=== PATIENT | male | born 1935 | race Caucasian/White ===

== ENCOUNTER 2017-06-04 11:42 | Observation (INO) | payer MEDICARE ==
[2017-06-04 12:07] LABS: BASOPHILS 0.3 % (0-2); EOSINOPHILS 2.9 % (0-7); HEMATOCRIT 37.2 % (42.0-54.0); HEMOGLOBIN 12.5 g/dL (13.5-17.5); IMMATURE GRANULOCYTES 0.2 % (0-5); LYMPHOCYTES 40.3 % (15-50); MCH 31.4 pg (26.0-34.0); MCHC 33.6 g/dL (31.0-37.0); MCV 93.5 fL (80.0-100.0); MONOCYTES 9.4 % (2-11); NEUTROPHILS 46.9 % (40-80); PLATELET COUNT 180 10x3/uL (130-400); RBC 3.98 10x6/uL (4.20-6.10); RDW 12.6 % (11.5-14.5); WBC 5.9 10x3/uL (4.8-10.8)
[2017-06-04 12:11] LABS: APPEARANCE CLEAR (CLEAR); BACTERIA MODERATE /hpf (NONE SEEN); BILIRUBIN NEGATIVE (NEGATIVE); COLOR YELLOW (YELLOW); EPITHELIAL CELLS 0-5 /hpf (0-5); GLUCOSE NEGATIVE (NEGATIVE); KETONE NEGATIVE (NEGATIVE); MUCUS >1+ /lpf (NONE SEEN); NITRITE NEGATIVE (NEGATIVE); PROTEIN NEGATIVE (NEGATIVE); RED CELLS - URINE 0-5 /hpf (0-5); UROBILINOGEN NORMAL (NORMAL); WHITE CELLS - URINE 0-5 /hpf (0-5)
[2017-06-04 12:18] LABS: UDS - AMPHET NEGATIVE QUAL (NEGATIVE); UDS - BARB NEGATIVE QUAL (NEGATIVE); UDS - BENZO NEGATIVE QUAL (NEGATIVE); UDS - COCAINE NEGATIVE QUAL (NEGATIVE); UDS - OPIATE NEGATIVE QUAL (NEGATIVE); UDS - PCP NEGATIVE QUAL (NEGATIVE); UDS - THC NEGATIVE QUAL (NEGATIVE)
[2017-06-04 12:22] LABS: ALKALINE PHOSPHATASE 129 U/L (46-116); ALT (SGPT) 15 U/L (10-68); BILIRUBIN - TOTAL 0.84 mg/dL (0.2-1.3); CALC OSMOLALITY 284 mosm/kg (275-300); CALCIUM 8.6 mg/dL (8.5-10.1); CARBON DIOXIDE 27.7 mmol/L (21.0-32.0); CHLORIDE - SERUM 106 mmol/L (98-107); CREATININE - SERUM 1.4 mg/dL (0.6-1.3); GLUCOSE 96 mg/dL (74-106); POTASSIUM - SERUM 3.3 mmol/L (3.5-5.1); PROTEIN - SERUM 6.7 g/dL (6.4-8.2); SODIUM 142 mmol/L (136-145); UREA NITROGEN 17 mg/dL (7-18); eGFR NON AFRICAN AMERICAN 51 mL/min (90-120)
[2017-06-04 12:46] LABS: MAGNESIUM - SERUM 2.1 mg/dL (1.8-2.4)
[2017-06-04 12:47] LABS: CKMB 1.4 U/L (0.0-3.6); CREATINE KINASE 447 UL (21-232); PRO BNP 545 pg/mL (0-450); TROPONIN-I < 0.017 ng/mL (0.000-0.060)
--- NOTE | 2017-06-04 17:10 | NUR ---
TRANSFER FROM ER BY W/C. VONDAINTED TO ROOM. CALL LIGHT IN REACH. WILL CONT. PLAN OF CARE.
[2017-06-04 17:25] VITALS: BP 154/82; BMI 27.5
[2017-06-04] MEDS ORDERED: ZOLOFT50 MG PO (17:31)
[2017-06-04] MEDS ORDERED: NAMENDA10 MG PO (17:32)
[2017-06-04] MEDS ORDERED: ARICEPT10 MG PO (17:32)
[2017-06-04] MEDS ORDERED: ZOCOR80 MG PO (17:33)
[2017-06-04 17:53] VITALS: BP 154/82
[2017-06-04 19:00] VITALS: BP 155/88
--- NOTE | 2017-06-04 19:10 | NUR ---
AWAKE/ALERT ORIENTED X1. MULTIPLE FAMILY MEMBERS PRESENT IN ROOM. STATED HE DOES TRY TO GET OOB MULTIPLE TIMES DURING THE NIGHT. STATED NONE OF THE FAMILY MEMBERS CAN STAY WITH HIM TONIGHT. FREDDY BED ALARM IS ON. IV IN L AC WITH NS INFUSING AT 50ML/HR. TELEMETRY SHOWS 61 SR. FAMILY IS LEAVING. LEFT DOOR OPEN TO MONITOR CLOSELY.
--- NOTE | 2017-06-04 21:40 | NUR ---
ADMIN POTASSIUM 40 MEQ PO MIXED IN ORANGE JUICE FOR LAB VALUE 3.3.
[2017-06-05] VITALS: BP 149/69
--- NOTE | 2017-06-05 01:15 | NUR ---
TRANSFERED FROM 2128 TO 2133 TO BE CLOSER TO NURSES STATION DUE TO HX OF FALLS AND DEMENTIA. ASSISTED TO BATHROOM TO VOID AND BACK TO BED.
--- NOTE | 2017-06-05 02:16 | NUR ---
PULLED IV OUT, RESITED IN LEFT FA 22G. ALSO PULLED OFF TELEMETRY LEADS.
[2017-06-05 04:00] VITALS: BP 127/71
--- NOTE | 2017-06-05 04:57 | NUR ---
FOUND PATIENT PULLING ON IV LINE. IV HAD DISLODGED AND INFILTRATED. WOULD NOT LET ME REMOVE IV, HITTING AND KICKING. ANOTHER NURSE ASSISTED HOLDING HIS ARMS AND FEET SO I COULD REMOVE THE IV. TRIED TO WRAP A WARM BLANKET AROUND HIS HAND FOR THE SWELLING AND HE RESISTED THIS TREATMENT.
[2017-06-05 05:16] LABS: BASOPHILS 0.3 % (0-2); EOSINOPHILS 4.3 % (0-7); HEMATOCRIT 37.7 % (42.0-54.0); HEMOGLOBIN 12.3 g/dL (13.5-17.5); IMMATURE GRANULOCYTES 0.1 % (0-5); LYMPHOCYTES 40.6 % (15-50); MCH 30.8 pg (26.0-34.0); MCHC 32.6 g/dL (31.0-37.0); MCV 94.5 fL (80.0-100.0); MEAN PLATELET VOLUME 10.1 fL (7.4-10.4); MONOCYTES 10.2 % (2-11); NEUTROPHILS 44.5 % (40-80); PLATELET COUNT 183 10x3/uL (130-400); RBC 3.99 10x6/uL (4.20-6.10); RDW 12.6 % (11.5-14.5); WBC 7.2 10x3/uL (4.8-10.8)
[2017-06-05 05:40] LABS: ALBUMIN 3.1 g/dL (3.4-5.0); BILIRUBIN - TOTAL 0.6 mg/dL (0.2-1.3); CALCIUM 8.7 mg/dL (8.5-10.1); CARBON DIOXIDE 28.3 mmol/L (21.0-32.0); CREATININE - SERUM 1.4 mg/dL (0.6-1.3); PROTEIN - SERUM 6.3 g/dL (6.4-8.2)
[2017-06-05 05:42] LABS: ANION GAP 13.3 mmol/L (8-16); POTASSIUM - SERUM 4.6 mmol/L (3.5-5.1)
--- NOTE | 2017-06-05 06:17 | NUR ---
ASSISTED TO BATHROOM TO VOID. KILNMAN CHANGED BEDDING AND PUT AN ADULT DIAPER ON HIM. REFUSED TO TAKE SCHED MED PROTONIX.
[2017-06-05 08:00] VITALS: BP 170/90
--- NOTE | 2017-06-05 10:33 | NUR ---
PT RESTING QUIELTY, RR EVEN AND UNLABORED. FAMILY AT BEDSIDE, DISCUSSED CARE WITH FAMILY. WILL CTM.
[2017-06-05 12:00] VITALS: BP 152/93
[2017-06-05 12:52] VITALS: BMI 24.0
[2017-06-05 16:00] VITALS: BP 149/75
--- NOTE | 2017-06-05 18:30 | NUR ---
PT RESTING QUIETLY, FAMILY AT BEDSIDE. RR EVEN AND UNLABORED. PT CALM AND COOPERATIVE. WILL GIVE REPORT ON PT CONDITION FOR THE DAY.
[2017-06-05 19:00] VITALS: BP 145/87
--- NOTE | 2017-06-05 19:47 | NUR ---
FAMILY HAS LEFT FOR THE NIGHT. PT WITH MAT ALARM IN PLACE. ASSISTED UP TO USE BSC. ALSO HAS DEPENDS IN PLACE. NO IV ACCESS. NONLABORED RESPIRATIONS ON ROOM AIR. DOOR TO ROOM IS OPEN AND HIS ROOM FACES THE NURSES STATION FOR OPTIMAL SUPERVISION. SEE SHIFT ASSESSMENT. CPOC.
--- NOTE | 2017-06-05 22:35 | NUR ---
PT CURLED UP IN BED AND WENT TO SLEEP IMMEDIATELY AFTER HIS FAMILY LEFT. UNFORTUNATELY THIS MADE HIM RESISTENT TO TAKING HIS BEDTIME MEDS WHEN HE WAS AWAKENED. HE IS CONFUSED. TELLS NURSE HE DOESN'T TAKE MEDS FROM A "3YEAR OLD" IN REFERENECE TO HIS DAUGHTER. NO COAXING OR RATIONALIZING MADE HIM WANT TO TAKE "THOSE PILLS" THAT COULD BE "ANYBODIES". WILL LOOK INTO RESETTING HS MEDS FOR EARLIER WHEN PT IS LESS CONFUSED/LESS SUNDOWNING. FOR NOW, WILL MONITOR AND LET PATIENT SLEEP.
[2017-06-06] VITALS: BP 171/87
[2017-06-06 04:03] VITALS: BP 166/73
--- NOTE | 2017-06-06 05:13 | NUR ---
PT HAS RESTED WITHOUT INCIDENT THE ENTIRE NIGHT. HE HAS NOT ATTEMPTED TO GET UP. MAT ALARM HAS BEEN IN PLACE. CPOC.
[2017-06-06 06:10] LABS: BASOPHILS 0.3 % (0-2); EOSINOPHILS 6.1 % (0-7); HEMATOCRIT 36.2 % (42.0-54.0); HEMOGLOBIN 11.8 g/dL (13.5-17.5); IMMATURE GRANULOCYTES 0.2 % (0-5); LYMPHOCYTES 40.4 % (15-50); MCH 30.8 pg (26.0-34.0); MCHC 32.6 g/dL (31.0-37.0); MCV 94.5 fL (80.0-100.0); MEAN PLATELET VOLUME 10.2 fL (7.4-10.4); MONOCYTES 10.5 % (2-11); NEUTROPHILS 42.5 % (40-80); PLATELET COUNT 177 10x3/uL (130-400); RBC 3.83 10x6/uL (4.20-6.10); RDW 12.8 % (11.5-14.5); WBC 6.2 10x3/uL (4.8-10.8)
[2017-06-06 06:36] LABS: ANION GAP 10.9 mmol/L (8-16); BILIRUBIN - TOTAL 0.5 mg/dL (0.2-1.3); CALCIUM 8.4 mg/dL (8.5-10.1); CARBON DIOXIDE 28.7 mmol/L (21.0-32.0); CREATININE - SERUM 1.3 mg/dL (0.6-1.3); PROTEIN - SERUM 6.2 g/dL (6.4-8.2)
[2017-06-06 06:38] LABS: POTASSIUM - SERUM 3.6 mmol/L (3.5-5.1)
--- NOTE | 2017-06-06 07:30 | NUR ---
REPORT RECEIVED. RR EVEN AND UNLABORED. PT ASLEEP. WILL CTM.
--- NOTE | 2017-06-06 07:42 | NUR ---
ORDER FOR STOOL SPECIMEN UNCOLLECTED. PT ONLY VOIDED DURING THIS SHIFT.
[2017-06-06 08:00] VITALS: BP 156/63
--- NOTE | 2017-06-06 09:30 | NUR ---
SPOKE TO PTS FAMILY MEMEMBER OVER TELEPHONE REGARDING PT STATUS. FAMILY VERBALIZED UNDERSTANDING REGARDING PT STATUS. WILL CTM.
--- NOTE | 2017-06-06 10:14 | NUR ---
ASSISTED PT TO BSC. PT CALM AND COOPERATIVE. DENIES FURTHER NEEDS, FREDDY ALARM ON PT. WILL CTM.
[2017-06-06 12:00] VITALS: BP 98/61
--- NOTE | 2017-06-06 15:34 | NUR ---
ROUNDING AND I INFORMED HER ABOUT PTS CONFUSION AND NONCOMPLIANCY AT NIGHT WITH MEDS SO WE ARE ADJUSTING SCHEDULE TO BEST BENEFIT PT AND HOPEFULLY HE WONT REFUSE DURING WITH DINNER MEAL SINCE FAMILY IS AROUND. CALLED PHARMACY AND THEY WILL MAKE THE TIME CHANGES. NO FURTHER NEEDS. WILL CPOC.
[2017-06-06 16:00] VITALS: BP 147/88
--- NOTE | 2017-06-06 18:25 | NUR ---
PT RESTING QUIETLY, RR EVEN AND UNALBORED. FREDDY ALARM ON PT. PT DENIES NEEDS AT THIS TIME, WILL GIVE REPORT ON PT CONDTION FOR THE DAY.
[2017-06-06 20:00] VITALS: BP 163/99
--- NOTE | 2017-06-06 20:13 | NUR ---
LATE ENTRY 1745 PATIENT'S AND DAUGHTER NOT AT THE BEDSIDE THIS PM. PATIENT REMAINS CONFUSED. TC TO THE DAUGHTER MARKO FERREIRA AT [phone]. SHE WAS AT [facility] W/ THE FAMILY OF A FRIEND. CM SPOKE WITH HER BRIEFLY. SHE STATES SHE MOVED HER MOTHER AND FATHER TO HER HOME TO ASSIST HER MOTHER W/ CARE OF HER FATHER APPROXIMATELY 3 MONTHS AGO. THE PATIENT HAS WORSENING MENTAL STATUS CHANGES. BECOMES "COMBATIVE" PARTICULARLY WITH MEDICATION ADMINISTRATION, BATHING ETC. HER FATHER RECEIVES CARE W/ THE LOCAL [facility] OFFICE. SHE HAD FILLED OUT PAPERWORK FOR CAREGIVER ASSISTANCE BUT HAS BEEN DENIED. SHE HAD JUST TAKEN HER FATHER TO SEE SAMIRA MCKEON ON WEDNESDAY. CM DISCUSSED THAT HER FATHER HAS BEEN IN OBSERVATION. DISCUSSED PLAN FOR DISCHARGE. SHE WOULD LIKE TO TAKE HIM HOME W/ HOME HEALTH SERVICES. SHE HAS NOT BEEN SUCCESSFUL WORKING WITH THE [facility]. EXPLAINED HIS INSURER CAN APPROVE HOME HEALTH. PATIENT HAD A NEUROSURGERY CONSULT TODAY . PSYCH CONSULT MAYBE APPROPRIATE. WEEKDAY CM TO FOLLOW DTR CANNOT FREELY DISCUSS PLAN IN PRESENT SETTING.
[2017-06-07 00:44] VITALS: BP 145/80
[2017-06-07 05:09] LABS: BASOPHILS 0.3 % (0-2); EOSINOPHILS 5.9 % (0-7); HEMATOCRIT 37.9 % (42.0-54.0); HEMOGLOBIN 12.3 g/dL (13.5-17.5); IMMATURE GRANULOCYTES 0.1 % (0-5); LYMPHOCYTES 43.2 % (15-50); MCH 31.2 pg (26.0-34.0); MCHC 32.5 g/dL (31.0-37.0); MCV 96.2 fL (80.0-100.0); MEAN PLATELET VOLUME 10.5 fL (7.4-10.4); MONOCYTES 10.1 % (2-11); NEUTROPHILS 40.4 % (40-80); PLATELET COUNT 171 10x3/uL (130-400); RBC 3.94 10x6/uL (4.20-6.10); RDW 12.7 % (11.5-14.5); WBC 6.8 10x3/uL (4.8-10.8)
[2017-06-07 05:28] LABS: ALBUMIN 2.7 g/dL (3.4-5.0); ANION GAP 11.5 mmol/L (8-16); BILIRUBIN - TOTAL 0.41 mg/dL (0.2-1.3); CALCIUM 8.3 mg/dL (8.5-10.1); CARBON DIOXIDE 28.1 mmol/L (21.0-32.0); CREATININE - SERUM 1.2 mg/dL (0.6-1.3); POTASSIUM - SERUM 3.6 mmol/L (3.5-5.1); PROTEIN - SERUM 6.3 g/dL (6.4-8.2)
[2017-06-07 05:43] VITALS: BP 167/87
--- NOTE | 2017-06-07 07:42 | NUR ---
AM ROUNDS - PT IS IN BED AND AWAKE AT THIS TIME. FREDDY MAT ALARM ON AND WORKING. NO IV, NO MONITOR, REFUSES SCD. PT PULLS OUT/OFF IV AND MONITOR, BSC AT BEDSIDE. YELLOW BAND ON. BED AT LOWEST POSITION. CALL PHILLIPS IN USE/REACH. SIDE RAILS UP 2. WILL CONTINUE TO MONITOR
[2017-06-07 08:00] VITALS: BP 163/86
[2017-06-07 12:00] VITALS: BP 121/73
[2017-06-07] MEDS ORDERED: Levaquin PO (14:03)
[2017-06-07] MEDS ORDERED: FLORAJEN3 CAPS460 MG PO (14:04)
[2017-06-07] MEDS ORDERED: LEVAQUIN250 MG PO (14:09)
--- NOTE | 2017-06-07 15:11 | NUR ---
PT IN BED AWAKE WITH A VISITOR AT BEDSIDE. FREDDY BED ALARM ON AND WORKING. NO NEEDS AT THIS TIME. WILL CONTINUE TO MONITOR
--- NOTE | 2017-06-07 17:29 | NUR ---
D/C - WRITTEN AND VERBAL D/C INSTRUCTIONS GIVEN TO PT'S FAMILY MEMBER. NO IV TO D/C. NO HEART MONITOR TO D/C. PT LEFT FLOOR VIA WHEELCHAIR BY [facility] AND FAMILY MEMBER. WILL D/C
[2017-06-11 03:11] LABS: OVA + PARASITE EXAM Final report (())
== END 2017-06-07 17:34 | disposition home health service (06) ==
LOC: D.ER 11:42 → OBSVTIME 15:57 → D.M2 15:57
PROVIDERS: Emergency Medicine; Nurse Practitioner Family; ADMIT Family Medicine
DX: E86.0 Dehydration (principal); G93.41 Metabolic encephalopathy; R53.2 Functional quadriplegia; N39.0 Urinary tract infection, site not specified; F02.81 Dementia in other diseases classified elsewhere, unspecified severity, with behavioral disturbance; I25.10 Atherosclerotic heart disease of native coronary artery without angina pectoris; I10 Essential (primary) hypertension; G31.83 Neurocognitive disorder with Lewy bodies; E87.6 Hypokalemia; G93.0 Cerebral cysts; Z95.5 Presence of coronary angioplasty implant and graft

== ENCOUNTER 2017-07-09 13:07 | Observation (INO) | payer MEDICARE ==
[~2017-07-09] VITALS: Ht 157.5 cm; Wt 71.5 kg
[~2017-07-09 13:07] MED LIST: ARICEPT10 MG PO; FLORAJEN3 CAPS460 MG PO; LEVAQUIN250 MG PO; Levaquin PO; NAMENDA10 MG PO; ZOCOR80 MG PO; ZOLOFT50 MG PO
[2017-07-09 14:49] VITALS: BP 150/73; BMI 22.9
[2017-07-09 15:56] VITALS: BP 150/73
--- NOTE | 2017-07-09 17:56 | NUR ---
IV SITED TO LEFT FOREARM AFTER ONE ATTEMPT WITH 20G. TOLERATED WITHOUT C/O
--- NOTE | 2017-07-09 19:00 | NUR ---
REPORT RECEIVED AND CARE OF PT ASSUMED. PT LYING IN HIGH SUE'S POSITION WATCHING TV. IV IN LEFT FA SALINE LOCKED. BED ALARM AND FREDDY ALARM IN PLACE FOR HIGH FALL RISK PT. WILL MONITOR CLOSELY FOR NEEDS.
[2017-07-09 20:00] VITALS: BP 145/83
--- NOTE | 2017-07-09 20:30 | NUR ---
HS MEDICATIONS GIVEN. WILL CONTINUE TO MONITOR FOR NEEDS.
[2017-07-10] VITALS: BP 180/93
--- NOTE | 2017-07-10 03:47 | NUR ---
PT BATHED AND ALL LINENS AND GOWN CHANGED. POSITIONED FOR COMFORT. BED ALARM AND FREDDY ALARM ACTIVATED.
--- NOTE | 2017-07-10 03:58 | NUR ---
CLEANSED ABRASION / SCAB / SORE AREA ON LEFT THIGH. TREATED WITH IODINE AND COVERED WITH MEPILEX DRESSING. WILL CONTINUE TO MONITOR FOR NEEDS.
[2017-07-10 04:00] VITALS: BP 160/89
--- NOTE | 2017-07-10 04:39 | NUR ---
PT CONFUSED AND CLIMBING OUT OF BED...ASKING WHERE HIS IS. ATTEMPTS TO RE-ORIENT ARE ONLY SUCCESSFUL FOR A FEW MINUTES AT A TIME. BED ALARM AND FREDDY ALARM IN USE. SIDE RAILS UP X3 FOR SAFETY.
[2017-07-10 06:55] LABS: BASOPHILS 0.2 % (0-2); EOSINOPHILS 2.6 % (0-7); HEMATOCRIT 33.8 % (42.0-54.0); HEMOGLOBIN 11.3 g/dL (13.5-17.5); LYMPHOCYTES 37.3 % (15-50); MCH 31.1 pg (26.0-34.0); MCHC 33.4 g/dL (31.0-37.0); MCV 93.1 fL (80.0-100.0); MEAN PLATELET VOLUME 10.5 fL (7.4-10.4); MONOCYTES 10.7 % (2-11); NEUTROPHILS 49.2 % (40-80); PLATELET COUNT 187 10x3/uL (130-400); RBC 3.63 10x6/uL (4.20-6.10); WBC 5.9 10x3/uL (4.8-10.8)
[2017-07-10 07:24] LABS: ALBUMIN 2.8 g/dL (3.4-5.0); ANION GAP 15.5 mmol/L (8-16); BILIRUBIN - TOTAL 0.86 mg/dL (0.2-1.3); CALCIUM 8.1 mg/dL (8.5-10.1); CARBON DIOXIDE 24.4 mmol/L (21.0-32.0); CREATININE - SERUM 1.2 mg/dL (0.6-1.3); PROTEIN - SERUM 6.1 g/dL (6.4-8.2)
[2017-07-10 07:28] LABS: POTASSIUM - SERUM 2.9 mmol/L (3.5-5.1)
--- NOTE | 2017-07-10 08:00 | NUR ---
ASSESSMENT PER FLOW SHEET.PT WITHOUT DISTRESS.VERY CONFUSED. FALL PREVENTION IN PLACE WITH BED ALARM AND FREDDY ON AND FUNTIONING.
[2017-07-10 10:10] VITALS: BP 166/83
--- NOTE | 2017-07-10 11:00 | NUR ---
FAMILY TO VISIT.PT REMAINS WITHOUT DISTRESS.DOOR OPEN
[2017-07-10 13:39] VITALS: BP 146/80
[2017-07-10 14:20] VITALS: Ht 157.5 cm; Wt 71.5 kg
[2017-07-10 16:51] VITALS: BP 152/80
--- NOTE | 2017-07-10 18:19 | NUR ---
REMAINS WITHOUT CHANGE FROM INITIAL SHIFT ASSESSMENT.CONT PLAN OF CARE
--- NOTE | 2017-07-10 19:00 | NUR ---
REPORT RECEIVED AND CARE OF PT ASSUMED. PT LYING ON RIGHT SIDE WITH EYES CLOSED AND EASY RESPIRATIONS. IV IN LEFT FA PATENT WITH NS INFUSING AT 50 ML / HR AND POTASSIUM RIDER INFUSING AT 50 ML / HR. BED ALARM AND FREDDY ALARM IN PLACE FOR HIGH FALL RISK PATIENT. WILL MONITOR VIJAYLEY. SIDE RAILS UP X3 FOR SAFETY.
[2017-07-10 20:00] VITALS: BP 173/80
--- NOTE | 2017-07-10 21:13 | NUR ---
HS MEDICATIONS GIVEN. WILL CONTINUE TO MONITOR FOR NEEDS.
[2017-07-11] VITALS: BP 130/70
--- NOTE | 2017-07-11 00:13 | NUR ---
ASSISTED PT UP TO USE RESTROOM...VERY UNSTEADY ON HIS FEET. POSITIONED BACK IN BED FOR COMFORT. SIDE RAILS UP X3 AND BED ALARMS ACTIVATED FOR SAFETY.
[2017-07-11 04:00] VITALS: BP 155/75
[2017-07-11 05:02] LABS: BASOPHILS 0.1 % (0-2); EOSINOPHILS 2.7 % (0-7); HEMATOCRIT 36.2 % (42.0-54.0); HEMOGLOBIN 11.8 g/dL (13.5-17.5); IMMATURE GRANULOCYTES 0.3 % (0-5); LYMPHOCYTES 40.4 % (15-50); MCH 30.7 pg (26.0-34.0); MCHC 32.6 g/dL (31.0-37.0); MCV 94.3 fL (80.0-100.0); MEAN PLATELET VOLUME 10.1 fL (7.4-10.4); MONOCYTES 9.6 % (2-11); NEUTROPHILS 46.9 % (40-80); PLATELET COUNT 185 10x3/uL (130-400); RBC 3.84 10x6/uL (4.20-6.10); RDW 12.9 % (11.5-14.5); WBC 6.7 10x3/uL (4.8-10.8)
[2017-07-11 05:27] LABS: ANION GAP 12.7 mmol/L (8-16); BILIRUBIN - TOTAL 1.13 mg/dL (0.2-1.3); CALCIUM 8.3 mg/dL (8.5-10.1); CARBON DIOXIDE 24.9 mmol/L (21.0-32.0); CREATININE - SERUM 1.2 mg/dL (0.6-1.3); PROTEIN - SERUM 6.5 g/dL (6.4-8.2)
[2017-07-11 05:28] LABS: POTASSIUM - SERUM 3.6 mmol/L (3.5-5.1)
--- NOTE | 2017-07-11 06:08 | NUR ---
PT BATHED AND ALL LINENS CHANGED, AND SCRUBS PUT ON PT FOR COMFORT, HE WAS NOT HAPPY WEARING GOWN. SIDE RAILS UP X3 AND BED ALARMS ACTIVATED. WILL CONTINUE TO MONITOR FOR NEEDS.
--- NOTE | 2017-07-11 06:09 | NUR ---
WOUND ON LEFT THIGH CLEANSED AND SWABBED WITH BETADINE. BORDER GAUZE DRESSING APPLIED.
--- NOTE | 2017-07-11 07:08 | NUR ---
PT IS LYING IN BED, CONFUSED ABOUT TIME OF DAY, REORIENTED TO TIME OF DAY, BED IN LOW POSITION, CALL LIGHT IN REACH, DRESSING ON LEFT LEG IS CLAEN DRY AND INTACT, NO SIGNS OF DISTRESS, CONTINUE WITH PLAN OF CARE
--- NOTE | 2017-07-11 07:15 | NUR ---
PATIENT IN BED WITH NO COMPLAINTS AT THIS TIME. IV INTACT. CALL LIGHT WITHIN REACH.
[2017-07-11 08:20] VITALS: BP 172/88
[2017-07-11 11:38] VITALS: BP 136/100; BP 147/67
[2017-07-11 15:04] VITALS: BP 126/63
--- NOTE | 2017-07-11 15:16 | NUR ---
1510 CM WENT TO PATIENT'S ROOM. NO ONE AT THE BEDSIDE. THE PATIENT IS SLEEPING. TC TO [phone]. LEFT5 VOICEMAIL. AWAIT CB REGARDING DISCHARGE PLAN.
--- NOTE | 2017-07-11 18:10 | NUR ---
PT IS LYING ON LEFT SIDE WITH COVERS OVER HEAD, HAD NOT EATEN DINER, PT STATED HAD A BIG LUNCH AND JUST NOT VERY HUNGRY. NO SIGNS OF DISTRESS, BED IN LOW POSITION, CALL LIGHT IN REACH
--- NOTE | 2017-07-11 19:00 | NUR ---
REPORT RECEIVED AND CARE OF PT ASSUMED. PT LYING ON RIGHT SIDE IN LOW SUE'S POSITION. IV IN LEFT FA SALINE LOCKED. BED ALARM AND FREDDY ALARM IN USE. SIDE RAILS UP X3 FOR SAFETY. WILL CONTINUE TO MONITOR FOR NEEDS.
[2017-07-11 20:00] VITALS: BP 130/70; BP 141/89
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
[2017-07-12] VITALS: BP 141/89
[2017-07-12 04:00] VITALS: BP 186/85
[2017-07-12 05:49] LABS: BASOPHILS 0.3 % (0-2); EOSINOPHILS 3.3 % (0-7); HEMATOCRIT 36.1 % (42.0-54.0); HEMOGLOBIN 11.7 g/dL (13.5-17.5); IMMATURE GRANULOCYTES 0.2 % (0-5); LYMPHOCYTES 44.2 % (15-50); MCH 30.8 pg (26.0-34.0); MCHC 32.4 g/dL (31.0-37.0); MEAN PLATELET VOLUME 10.7 fL (7.4-10.4); MONOCYTES 10.3 % (2-11); NEUTROPHILS 41.7 % (40-80); PLATELET COUNT 193 10x3/uL (130-400); RDW 12.9 % (11.5-14.5); WBC 5.8 10x3/uL (4.8-10.8)
[2017-07-12 06:11] LABS: ALBUMIN 2.9 g/dL (3.4-5.0); ANION GAP 11.7 mmol/L (8-16); CALCIUM 8.4 mg/dL (8.5-10.1); CARBON DIOXIDE 27.6 mmol/L (21.0-32.0); CREATININE - SERUM 1.2 mg/dL (0.6-1.3); POTASSIUM - SERUM 3.3 mmol/L (3.5-5.1); PROTEIN - SERUM 6.3 g/dL (6.4-8.2)
--- NOTE | 2017-07-12 06:22 | NUR ---
POTASSIUM LEVEL 3.3 THIS AM. GAVE 40 MEQ PO POTASSIUM PER ELECTROLYTE PROTOCOL. WILL RE-CHECK IN 4 HOURS.
--- NOTE | 2017-07-12 07:15 | NUR ---
PT IS CONFUSED TO TIME OF DAY AND SITUATION TODAY, VERY AGGRIVATED AND WANTED TO KNOW WHY DAUGHTER DID NOT COME SEE HIM ALL DAY, TALKED TO PT AND REORIENTED TO TIME OF DAY, WAS TOLD IN [place] PT DID NOT SLEEP ALL NIGHT AND MAY BE CAUSE OF CONFUSION.CALMED PT DOWN AND ASSURED HIM DAUGHTER WILL BE IN THIS MORNING
[2017-07-12 08:38] VITALS: BP 171/100
[2017-07-12 12:38] VITALS: BP 111/61
[2017-07-12 16:16] VITALS: BP 116/64
--- NOTE | 2017-07-12 16:38 | NUR ---
MADHAV NOTE: MADHAV SPOKE WITH JV WITH [employer] AND HE STATED PATIENT COULD BE ADMITTED TO A SNF WHILE BEING IN OBSERVATION STATUS. BRAIN COREY ALSO SPOKE WITH JV AND SHE CONFIRMED HIS STATEMENT. REFERRALS HAVE BEEN SENT: [facility] DENIED, [facility] HAS NOT CALLED CM BACK, [facility] REQUESTING A SUSU, CONCERNS WITH C-DIFF, BP AND DEMENTIA-CALLING CM BACK.
--- NOTE | 2017-07-12 16:40 | NUR ---
1210 MADHAV MET WITH PATIENT'S DAUGHTER, MARKO FERREIRA, IN ICU FAMILY ROOM FOR PRIVACY. MS FERREIRA STATES SHE MOVED HER MOTHER AND FATHER INTO A HOME ON HER PROPERTY. THE CARE OF HER FATHER WAS TOO MUCH FOR HER MOTHER. SHE HAD BEEN WORKING WITH THE [facility] TO OBTAIN ASSISTANCE BUT THE SYSTEM WAS TOO COMPLICATED. HER FATHER IS WEAKER , FUNCTIONAL QUADRIPLEGIA BY DX. HE ALSO HAS LEWY'S BODY DEMENTIA. CM ADVISED HER THAT HER FATHER DID NOT MEET CRITERIA FOR INPATIENT CARE AND THAT HE WOULD BE IN AN OBSERVATION STATUS. ADVISED HER HE HAS A MANAGED MEDICARE , [employer] P[employer]. ADVISED THEY WOULD HAVE TO AUTH HIS ADMISSION TO A FACILITY BUT THEY MAY NOT APPROVE. SHE UNDERSTANDS. SHE WILL LOOK AT PRIVATE PAY FOR A MONTH IF NECESSARY. HER CHOICE OF FACILITIES ARE [facility] AND [facility] AND [facility] WE RETURNED TO THE UNIT. CM WENT TO [facility] POC SIGNED. SHE HAD LEFT. FAXED REFERRALS TO THE ABOVE FACILITIES. [facility]. THEY CANNOT MEET HIS NEEDS. [facility]- AWAIT REVIEW OF REFERRAL. [facility]- CB QUESTION REGARDING DIARRHEA ?? C DIFF , SUSU AND ELEVATED B/P. WILL F/U IN THE AM
--- NOTE | 2017-07-12 18:08 | NUR ---
OT NOTE: PT COMPLETED BED MOB WITH MOD/MAX A. PT COMPLETED HYGIENE TASK WITH MOD A. THANK YOU, LORE LEGER/Deneen
--- NOTE | 2017-07-12 19:00 | NUR ---
REPORT RECEIVED AND CARE OF PT ASSUMED. PT LYING ON RIGHT SIDE WITH EYES CLOSED AND UNLABORED BREATHING. NO IV AT THIS TIME. BED ALARMS ARE ACTIVTED. SIDE RAILS UP X2 FOR SAFETY.
--- NOTE | 2017-07-12 20:38 | NUR ---
HS MEDICATIONS GIVEN. WILL CONTINUE TO MONITOR FOR NEEDS.
[2017-07-12 23:01] VITALS: BP 139/64
--- NOTE | 2017-07-13 00:30 | NUR ---
PT UP TO RESTROOM. POSITIONED BACK IN BED FOR COMFORT. CALL LIGHT WITHIN REACH. BED ALARM IN USE.
[2017-07-13 01:52] VITALS: BP 124/70
[2017-07-13 04:46] VITALS: BP 181/89
[2017-07-13 06:02] LABS: BASOPHILS 0.3 % (0-2); EOSINOPHILS 3.3 % (0-7); HEMATOCRIT 35.8 % (42.0-54.0); HEMOGLOBIN 11.5 g/dL (13.5-17.5); IMMATURE GRANULOCYTES 0.2 % (0-5); LYMPHOCYTES 41.9 % (15-50); MCH 30.7 pg (26.0-34.0); MCHC 32.1 g/dL (31.0-37.0); MCV 95.5 fL (80.0-100.0); MEAN PLATELET VOLUME 10.4 fL (7.4-10.4); NEUTROPHILS 43.3 % (40-80); PLATELET COUNT 189 10x3/uL (130-400); RBC 3.75 10x6/uL (4.20-6.10); RDW 13.1 % (11.5-14.5); WBC 6.1 10x3/uL (4.8-10.8)
[2017-07-13 06:37] LABS: ALBUMIN 2.9 g/dL (3.4-5.0); ANION GAP 12.2 mmol/L (8-16); BILIRUBIN - TOTAL 0.8 mg/dL (0.2-1.3); CALCIUM 8.4 mg/dL (8.5-10.1); CARBON DIOXIDE 26.5 mmol/L (21.0-32.0); CREATININE - SERUM 1.2 mg/dL (0.6-1.3); POTASSIUM - SERUM 3.7 mmol/L (3.5-5.1); PROTEIN - SERUM 5.9 g/dL (6.4-8.2)
--- NOTE | 2017-07-13 07:26 | NUR ---
PT IS SITTING ON SIDE OF BED READY TO LEAVE, PT HAS BEEN IN CLOSET AND TRYING TO LEAVE ALL NIGHT, ANXIOUS ABOUT GETTING HOME AND HOW HE WILL GET HOME. REORIENTED PT BACK TO HOSPITAL AND ADVISED DAUGHTER WILL BE UP, GAVE PT A CUP OF COFFEE AND PT CALMED DOWN, CONTINUE WITH PLAN OF CARE
--- NOTE | 2017-07-13 08:04 | NUR ---
PT AWAKE AND HAS BEEN TRYING TO GET OUT OF BED. HE IS CONFUSED.BED ALARM ON AND FUNCTIONING.DOOR OPEN.
[2017-07-13 08:42] VITALS: BP 156/83
[2017-07-13 11:26] VITALS: BP 126/72
--- NOTE | 2017-07-13 13:41 | NUR ---
NUTRITION F/U CHART REVIEWED. PT VISIT. TOLERATING REG DIET WITH 100% INTAKE RECENT MEALS. WILL CONTINUE TO PROVIDE DIET, MONITOR PO INTAKE. RD FOLLOWING
--- NOTE | 2017-07-13 15:47 | NUR ---
OT NOTE: PT VERY CONFUSED. WANTING TO KNOW WHERE HIS AND KIDS ARE. NO FAMILY IN ROOM; ASSISTED PT TO EDGE OF BED AND ATTEMPTED TO AMB TO CLOSET. EXPLAINED TO PT THAT HE WAS IN THE HOSP AND PROVIDED SAFETY AWARENESS EDUCAITON, HOWEVER,, DUE TO CONFUSION, PT UNABLE TO REMEMBER WHAT THERAPIST HAD TOLD HIM. ASSISTED BACK TO EDGE OF BED; AROM EXS WITH MOD CUES, PT WAS CONTINUALLY ATTEMPTING TO GET UP. ASSISTED BACK IN BED AND COVERED WITH SHEET. PT APPEARS CONTENT FOR THE MOMENT. TAYLOR GANT, OTR/L
[2017-07-13 16:10] VITALS: BP 124/70
--- NOTE | 2017-07-13 17:55 | NUR ---
OT NOTE: PT COMPLETED BED MOB WITH MOD/MAX A SECONDARY TO DECREASED SEQUENCING. PT COMPLETED SITTING BALANCE WITH SBA AND CUES FOR INCREASED SAFETY. PT COMPLETED DRESSING WITH MOD A. THANK YOU, LORE LEGER/Deneen
[2017-07-13 20:00] VITALS: BP 142/88
--- NOTE | 2017-07-13 20:59 | NUR ---
PATIENT LAYING ON LEFT SIDE SLEEPING, EASILY AROUSED, CONFUSED, NOT AGITATED AT THIS TIME. HE DID REFUSE MIDNIGHT AND 0400 VITALS. BED ALARM AND FREDDY ALARM ON. x2 BEDRAILS UP. NO NEEDS NOTED AT THIS TIME.
--- NOTE | 2017-07-14 02:00 | NUR ---
PT RESTING IN BED WITH NO DISTRESS. RESPIRATIONS EVEN AND UNLABORED. SIDE RAILS X 2. BED LOW. BED ALARM ON. CALL LIGHT IN REACH.
[2017-07-14 04:00] VITALS: BP 150/71
[2017-07-14 05:33] LABS: BASOPHILS 0.3 % (0-2); EOSINOPHILS 3.4 % (0-7); HEMATOCRIT 38.6 % (42.0-54.0); HEMOGLOBIN 12.3 g/dL (13.5-17.5); IMMATURE GRANULOCYTES 0.1 % (0-5); LYMPHOCYTES 47.4 % (15-50); MCH 30.8 pg (26.0-34.0); MCHC 31.9 g/dL (31.0-37.0); MCV 96.5 fL (80.0-100.0); MEAN PLATELET VOLUME 10.6 fL (7.4-10.4); NEUTROPHILS 38.8 % (40-80); PLATELET COUNT 209 10x3/uL (130-400); RDW 13.1 % (11.5-14.5); WBC 7.1 10x3/uL (4.8-10.8)
[2017-07-14 06:06] LABS: ANION GAP 13.6 mmol/L (8-16); BILIRUBIN - TOTAL 0.67 mg/dL (0.2-1.3); CALCIUM 8.6 mg/dL (8.5-10.1); CARBON DIOXIDE 27.7 mmol/L (21.0-32.0); CREATININE - SERUM 1.3 mg/dL (0.6-1.3); POTASSIUM - SERUM 4.3 mmol/L (3.5-5.1); PROTEIN - SERUM 6.8 g/dL (6.4-8.2)
--- NOTE | 2017-07-14 07:38 | NUR ---
PT LYING IN BED ON RIGHT SIDE, WANTED TO KNOW WHEN HE WILL BE ABLE TO GO HOME AND THIS IS RIDICULOUS, ADVISED PT WE ARE CURRENTLY WORKING ON GETTING HIM PLACED, PT INQUIIRED ON DAUGHTER AND GRANDDAUGHTER, ADVISED PT THEY USUALLY ARRIVE AFTER LUNCH. GAVE PT COFEE AND TURNED ON TELEVISION FOR DISTRACTION TO CALM PT. CONTINUE WITH PLAN OF CARE
[2017-07-14 08:45] VITALS: BP 145/79
--- NOTE | 2017-07-14 10:24 | NUR ---
CM REASSESSMENT NOTE: PATIENT IS DISCHARGING TO [facility] TO A SKILLED BED TODAY BY FACILITY VAN. PATIENTS DAUGHTER (MARKO) HAS BEEN NOTIFIED AND SHE WILL MEET PATIENT AT FACILITY. SCHEDULED HEEL VARNISHER IS BETWEEN 1-2.
--- NOTE | 2017-07-14 12:16 | NUR ---
OT NOTE: BED MOB WITH CGA; STATIC/DYNAMIC SITTING TO IMPROVE TRUNK STRENGTH. TAYLOR GANT, OTR/L
--- NOTE | 2017-07-14 13:38 | NUR ---
PT DC TO [facility], WENT OVER DC PAPERWORK AND HAD PT SIGN
== END 2017-07-14 13:40 | disposition home or self-care (01) ==
LOC: D.MS 13:07 → OBSVTIME 13:07 → D.MS 07-14 13:40
PROVIDERS: ADMIT Emergency Medicine
DX: R53.1 Weakness (principal); R53.2 Functional quadriplegia; R42 Dizziness and giddiness; I10 Essential (primary) hypertension; I25.10 Atherosclerotic heart disease of native coronary artery without angina pectoris; E87.6 Hypokalemia

== ENCOUNTER 2017-08-16 17:36 | Inpatient (IN) | payer MEDICARE ==
[~2017-08-16] VITALS: Ht 157.5 cm; Wt 56.8 kg
--- NOTE | ~2017-08-16 | PN ---
PATIENT:NANCY ROACH MEDICAL RECORD: [id number] LOCATION:[facility] ADMISSION DATE: 08/16/17 PROGRESS NOTE DATE OF SERVICE: 08/21/2017 SUBJECTIVE: The patient's case was discussed with staff. He has no new complaint. OBJECTIVE: The patient is severely impaired cognitively, but denies any thoughts of harming himself or others. I do not think he has any recollection of having made those statements at the group home, he was just angry and frustrated. ASSESSMENT: No change in diagnoses. PLAN: Current medicines have been reviewed and will be maintained. Long-term prognosis is guarded. TRANSINT:[id number] Voice Confirmation ID: [id number] DOCUMENT ID: [id number] FANNY SIMMONS MD at 1101 CC: [id number] DICTATION DATE: 08/21/17 1218 DIRECTOR EHS: 08/21/17 1300 ADM IN [place] [id number] [place] [id number]
--- NOTE | ~2017-08-16 | PN ---
PATIENT:NANCY ROACH MEDICAL RECORD: [id number] LOCATION:[facility] ADMISSION DATE: 08/16/17 PROGRESS NOTE DATE OF SERVICE: 08/20/2017 SUBJECTIVE: The patient's case was discussed with staff. He has no new complaint. OBJECTIVE: The patient is in good behavioral control with limited insight about his condition. He is severely impaired cognitively. ASSESSMENT: No change in diagnoses. PLAN: Brief supportive and educational interventions were made. Usp prognosis is guarded. TRANSINT:[id number] Voice Confirmation ID: [id number] DOCUMENT ID: [id number] FANNY SIMMONS MD at 1204 CC: [id number] DICTATION DATE: 08/20/17 1314 TERRITORY SALES PROFESSIONAL: 08/20/17 1328 ADM IN [place] [id number] [place] [id number]
--- NOTE | ~2017-08-16 | DS ---
PATIENT:NANCY ROACH :33 MEDICAL RECORD: [id number] DISCHARGE SUMMARY ADMISSION DATE: 08/16/17 DISCHARGE DATE: 08/25/17 IDENTIFYING DATA: The patient is 82 years old and known to me from previous clinical contact. He was admitted to the hospital because of suicidal thoughts. He lives in a local half-way and has a known history of dementia. He also has a history of depression. He made comments to family and staff members the day prior to admission at the half-way that he was going to kill himself. When asked about this, he said he was going to get a gun and shoot himself. When interviewed, he denied having said this, although it is well documented. He is unhappy because he wants to live in his own home and not in a half-way and despite obvious reasons why he cannot live independently, he just simply will not accept the unfortunate circumstances that he finds himself in. HOSPITAL COURSE: The patient was admitted to the hospital and fully evaluated from both a medical, psychological, and social standpoint. He was treated with the usual bell therapies and activities along with antidepressant medication and did show improvement. He was subsequently transitioned back to the half-way. DISCHARGE DIAGNOSES: AXIS I: Lewy body dementia. Major depression, mild, recurrent without psychotic features. AXIS II: None. AXIS III: Coronary artery disease, hypertension. AXIS IV: Moderate stressors. AXIS V: Global assessment of functioning is 30. PLAN: At the time of discharge, the patient was not acutely dangerous to himself or others. He was tolerating his medications well. Followup is to be with his primary care half-way physician. TRANSINT:[id number] Voice Confirmation ID: [id number] DOCUMENT ID: [id number] FANNY SIMMONS MD at 1127 CC: [id number] DICTATION DATE: 09/07/17 1332 GENERAL COUNSELOR: 09/08/17 0839 DIS IN 08/25/17 [place] [id number] [place] [address]
--- NOTE | ~2017-08-16 | PN ---
PATIENT:NANCY ROACH MEDICAL RECORD: [id number] LOCATION:[facility] ADMISSION DATE: 08/16/17 PROGRESS NOTE DATE OF SERVICE: 08/25/2017 SUBJECTIVE: The patient's case was discussed with staff. He has no new complaint. OBJECTIVE: The patient is severely impaired cognitively, but has no thoughts of harming himself and has not been aggressive towards others. ASSESSMENT: No change in diagnoses. PLAN: I do not consider the patient acutely dangerous to himself or others. I do anticipate he can reasonably be transitioned out of the hospital. His long-term prognosis is guarded. TRANSINT:[id number] Voice Confirmation ID: [id number] DOCUMENT ID: [id number] FANNY SIMMONS MD at 1240 CC: [id number] DICTATION DATE: 08/25/17 1250 CUSTOMER ADVISOR SPECIALIST: 08/25/17 1309 DIS IN 08/25/17 [facility] [address] [place] [address]
--- NOTE | ~2017-08-16 | PN ---
PATIENT:NANCY ORACH MEDICAL RECORD: [id number] LOCATION:[facility] ADMISSION DATE: 08/16/17 PROGRESS NOTE DATE OF SERVICE: 08/23/2017 SUBJECTIVE: The patient's case was discussed with staff. He has no new complaint. OBJECTIVE: The patient denies intent to harm himself or others. He generally tolerates his medicines well. Eye contact is fair. ASSESSMENT: No change in diagnoses. PLAN: Brief supportive and educational interventions were made. Long-term prognosis is guarded. TRANSINT:[id number] Voice Confirmation ID: [id number] DOCUMENT ID: [id number] FANNY SIMMONS MD at 1457 CC: [id number] DICTATION DATE: 08/23/17 1113 INDUSTRIAL MACHINE OPERATOR: 08/23/17 1124 ADM IN [place] [id number] [place] [address]
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
--- NOTE | ~2017-08-16 | PN ---
PATIENT:NANCY ROACH MEDICAL RECORD: [id number] LOCATION:[facility] ADMISSION DATE: 08/16/17 PROGRESS NOTE DATE OF SERVICE: 08/19/2017 SUBJECTIVE: The patient's case was discussed with staff. He has no new complaint. OBJECTIVE: The patient is very distressed about money he lost as an investment and some pets that he has at home that he needs to get to and take care of. Trying to explain to him that he lives in a prison and does not have these pets just makes him angry. He has not been aggressive with staff, but I think that is more related to the skill with which they handle him rather than some improvement in his underlying condition. He will be given Trilafon at a dose of 2 mg at bedtime to assist with his thought disorganization. 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 PLAN: Overall, the patient's behaviors are better. I anticipate improvement with the Trilafon. TRANSINT:[id number] Voice Confirmation ID: [id number] DOCUMENT ID: [id number] FANNY SIMMONS MD at 1303 CC: [id number] DICTATION DATE: 08/19/17 1347 WOOD STAINER: 08/19/17 1402 ADM IN [place] [id number] [place] [address]
--- NOTE | ~2017-08-16 | PN ---
PATIENT:NANCY ROACH MEDICAL RECORD: [id number] LOCATION:[facility] ADMISSION DATE: 08/16/17 PROGRESS NOTE DATE OF SERVICE: 08/24/2017 SUBJECTIVE: The patient's case was discussed with staff. He has no new complaint. OBJECTIVE: The patient is in good behavioral control with limited insight about his condition. He tolerates his medicines well. Eye contact is poor. ASSESSMENT: No change in diagnoses. PLAN: The patient will be transitioned out of the hospital tomorrow. He is severely impaired, but certainly not suicidal. I know the statements he made that precipitated his admission. I really convinced that it was just simply someone who is angry and frustrated as opposed to someone profoundly depressed. It does not mean that when angry or frustrated, he may not do something that is self-injurious. It just simply means that there is no point in trying to address an underlying depressive illnesses though it was the primary cause of him having made the statements. It is difficult to work with him regarding stress reduction and ways to better address his frustrations given how old he is and how severely demented. His prognosis is guarded. I do anticipate transitioning him to the assisted tomorrow. TRANSINT:[id number] Voice Confirmation ID: [id number] DOCUMENT ID: [id number] FANNY SIMMONS MD at 0808 CC: [id number] DICTATION DATE: 08/24/17 1512 SUPPORT ASSOCIATE: 08/24/17 1540 ADM IN [facility] [address] [place] [id number]
--- NOTE | ~2017-08-16 | PSY ---
PATIENT NAME:NANCY ROACH MEDICAL RECORD: [id number] : 33 LOCATION:[facility] ADMISSION DATE: 08/16/17 ACCOUNT: [id number] PSYCHIATRIC EVALUATION DATE OF EVALUATION: 08/17/17 IDENTIFYING DATA: The patient is 82 years old and he is known to me from previous clinical contact. CHIEF COMPLAINT: Suicidal thoughts. HISTORY OF PRESENT ILLNESS: The patient [facility] in a local [facility] and has a known history of dementia. He also has a history of depression. He made comments to family and staff repeatedly yesterday at the [facility] that he was going to kill himself. He asked them to get a gun and shoot him. Today, he denies ever having saying that, but does endorse a desire to , but denies the intent to do it himself. He says he is very unhappy because he wants to live in his own house. He does not understand why he cannot live in his own house, and when it is explained to him, he just becomes argumentative about things that are facts. PAST MEDICAL HISTORY: Significant for hypertension, coronary artery disease, acid reflux, and anemia. PAST PSYCHIATRIC HISTORY: Significant for history of depression and Lewy body dementia. FAMILY HISTORY: Unknown. ALLERGIES: No known drug allergies. CURRENT MEDICATIONS: Include Namenda, Seroquel, Aricept, Zocor, potassium, Norvasc, and Tamiflu. SOCIAL HISTORY: The patient does not smoke or drink. He is . He has 5 children. 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 MENTAL STATUS EXAMINATION: The patient is awake, alert, and oriented to person and place. His mood is flat. His affect is constricted. Thought processes are circumstantial. Memory, concentration, and abstraction abilities are moderately impaired. He denies any active intent to harm himself or others as well as any overt psychotic symptoms. ASSETS: Supportive family members. LIABILITIES: Limited insight. DIAGNOSTIC IMPRESSION: AXIS I: Lewy body dementia. AXIS II: None. AXIS III: Coronary artery disease and hypertension. AXIS IV: Moderate stressors. AXIS V: Global assessment of functioning is 25. PLAN: At this time, the patient is admitted to the hospital secondary to suicidal thoughts associated with a dementing illness and some depressive symptoms that will be treated like a major depressive episode. His long-term prognosis is guarded. I think he is easily frustrated and obviously says things he does not mean. He has no history of suicide attempts and obviously has pretty limited means to kill himself. I am going to treat him with an antidepressant. His long-term prognosis is guarded. TRANSINT:[id number] Voice Confirmation ID: [id number] DOCUMENT ID: [id number] FANNY SIMMONS MD at 1317 CC: [id number] DICTATION DATE: 08/17/17 1238 GOAL UMPIRE: 08/17/17 1358 ADM IN [place] [id number] [place] [id number]
[2017-08-16] MEDS ORDERED: POTASSIUM CHLO10 ME1 PO (21:20)
[2017-08-16] MEDS ORDERED: NORVASC2.5 MG PO (21:21)
[2017-08-16] MEDS ORDERED: TAMIFLU75 MG PO (21:23)
[2017-08-17 04:55] VITALS: BP 119/71
[2017-08-17 06:41] LABS: BASOPHILS 0.3 % (0-2); EOSINOPHILS 2.9 % (0-7); HEMATOCRIT 37.3 % (42.0-54.0); HEMOGLOBIN 12.1 g/dL (13.5-17.5); IMMATURE GRANULOCYTES 0.2 % (0-5); LYMPHOCYTES 46.2 % (15-50); MCH 31.3 pg (26.0-34.0); MCHC 32.4 g/dL (31.0-37.0); MCV 96.4 fL (80.0-100.0); MEAN PLATELET VOLUME 9.9 fL (7.4-10.4); MONOCYTES 11.6 % (2-11); NEUTROPHILS 38.8 % (40-80); PLATELET COUNT 183 10x3/uL (130-400); RBC 3.87 10x6/uL (4.20-6.10); RDW 13.4 % (11.5-14.5); WBC 6.6 10x3/uL (4.8-10.8)
[2017-08-17 07:00] VITALS: BP 136/56
[2017-08-17 07:06] LABS: ALBUMIN 3.4 g/dL (3.4-5.0); ANION GAP 9.5 mmol/L (8-16); BILIRUBIN - TOTAL 1.32 mg/dL (0.2-1.3); CALCIUM 9.1 mg/dL (8.5-10.1); CARBON DIOXIDE 29.2 mmol/L (21.0-32.0); CHOL - HDL RATIO 2.6 ratio (2.3-4.9); CREATININE - SERUM 1.2 mg/dL (0.6-1.3); LDL-HDL RATIO 1.3 ratio (1.5-3.5); POTASSIUM - SERUM 3.7 mmol/L (3.5-5.1); PROTEIN - SERUM 6.8 g/dL (6.4-8.2); THYROID STIMULATING HORMONE 1.13 uIU/mL (0.36-3.74)
[2017-08-17 07:19] LABS: HEMOGLOBIN A1C 5.1 % (4.8-6.0)
[2017-08-17 16:00] VITALS: Ht 157.5 cm; Wt 56.8 kg
[2017-08-18 06:12] LABS: FOLATE (FOLIC ACID) - SERUM 7.7 ng/mL (>3.0); RAPID PLASMA REAGIN Non Reactive (Non Reactive); VITAMIN D 25 HYDROXY 15.7 ng/mL (30.0-100.0)
[2017-08-18 13:30] VITALS: BP 116/66
[2017-08-18 19:41] VITALS: BP 123/72
[2017-08-19 07:37] VITALS: BP 170/77
[2017-08-19 19:30] VITALS: BP 122/79
[2017-08-20 08:44] VITALS: BP 88/52
[2017-08-20 19:30] VITALS: BP 132/89
[2017-08-21 10:50] VITALS: BP 138/62
[2017-08-21 20:33] VITALS: BP 134/68
[2017-08-22 07:00] VITALS: BP 106/53
[2017-08-22 20:30] VITALS: BP 146/77
[2017-08-23 08:36] VITALS: BP 112/67
[2017-08-23 19:56] VITALS: BP 129/63
[2017-08-24 08:49] VITALS: BP 116/096
[2017-08-24] MEDS ORDERED: LIDODERM 5 %1 PATCH TRANSDERM (15:14)
[2017-08-24] MEDS ORDERED: PERPHENAZINE2 MG PO (15:14)
[2017-08-25 08:00] VITALS: BP 097/036
== END 2017-08-25 10:37 | DRG 57 ==
LOC: D.PSYCH 17:36
PROVIDERS: Psychiatry & Neurology Psychiatry
DX: G31.83 Neurocognitive disorder with Lewy bodies (principal); R45.851 Suicidal ideations; F32.9 Major depressive disorder, single episode, unspecified; F02.80 Dementia in other diseases classified elsewhere, unspecified severity, without behavioral disturbance, psychotic disturbance, mood disturbance, and anxiety; I25.10 Atherosclerotic heart disease of native coronary artery without angina pectoris; I10 Essential (primary) hypertension; D64.9 Anemia, unspecified; E78.5 Hyperlipidemia, unspecified; E87.6 Hypokalemia; G89.29 Other chronic pain; M54.5 Low back pain; M54.2 Cervicalgia